=== PATIENT | female | born 1960 | race Caucasian/White ===

== ENCOUNTER → 2021-01-08 10:39 | Outpatient (BNVA) | payer MEDICARE, MEDICAID, SELFPAY | PROVIDERS: PCP Nurse Practitioner Adult Health; Visit Provider Internal Medicine | DX: I25.10 Atherosclerotic heart disease of native coronary artery without angina pectoris (principal); R07.2 Precordial pain; I35.1 Nonrheumatic aortic (valve) insufficiency | CPT/HCPCS: 93005; 99212 ==

== ENCOUNTER → 2021-01-09 13:51 | Outpatient (REF) | payer MEDICARE, MEDICAID, SELFPAY ==
--- NOTE | 2021-01-09 14:01 | CA_ITS ---
Transthoracic Echocardiogram Patient (Last, First, Middle): Norma Lopez, Gender: Female Date of : 1960 Age: 60 Procedure Date: 01/09/2021 Procedure Type: Transthoracic Echocardiogram Location: OP Height: 154.94 cm Weight: 68.04 kg BSA: 1.67 m2 Heart Rate: bpm BP: 140 / 68 mmHg Coremaker Supervisor: VICKIE Referring MD: Markie Virgen MD Manager Testing: Jim Oconnor MD Symptoms: I25.10 - Atherosclerotic heart disease of [place] coronary... Study Quality: Fair ECG Rhythm: Sinus Conclusions: - 1. Mildly reduced LV systolic function with LVEF of 45-50% with impaired relaxation filling pattern 2. Mild aortic regurgitation 3. normal RV systolic pressure 4. No pericardial effusion Findings Left Ventricle Normal left ventricular cavity size. There is normal left ventricular wall thickness. The left ventricular systolic function is mildly decreased. The visually estimated ejection fraction is between 45-50%. Spectral Doppler is indicative of an impaired relaxation filling pattern. E/E prime ratio is between 8 and 15 consistent with indeterminate filling pressures. Wall Motion Rest Echo Findings The mid inferior segment is hypokinetic. The basal inferior and basal inferoseptal segments are akinetic. All other scored wall segments showed normal motion. Right Ventricle Normal right ventricular cavity size and systolic function. Atria The left atrium is normal in size. There is lipomatous hypertrophy of the interatrial septum. There is a mobile atrial septum noted. Interatrial shunt cannot be excluded. The right atrium is normal in size. Aortic Valve There is mild calcification of the aortic valve. There is no aortic valve stenosis. There is mild aortic valve regurgitation. Mitral Valve Likely normal mitral valve structure and function. There is trace mitral valve regurgitation. There is no mitral valve stenosis. Pulmonic Valve The pulmonic valve was not well visualized. Tricuspid Valve Likely normal tricuspid valve structure and function. There is mild tricuspid valve regurgitation. The right ventricular systolic pressure is normal. The right ventricular systolic pressure is 29 mmHg. Normal right atrial pressure. There is no evidence of pulmonary hypertension. Great Vessels All visible segments of the aorta are normal in size. The pulmonary artery was not well visualized. Venous The inferior vena cava is normal in size and collapses greater than 50% with inspiration. Pericardium/Pleural There is no evidence of pericardial effusion. Prior Study Comparison Changes noted compared to prior study dated: 05/15/2020. LV systolic function is mildly depressed Measurements 2D Linear Measurements IVSd: 1.11 0.6-0.9/0.6-1.0 cm LVIDd: 4.76 3.9-5.3/4.2-5.9 cm LVIDd Index: 2.85 2.4-3.2/2.2-3.1 cm/m2 LVIDs: 2.93 2.0-3.6 cm LVPWd: 1.00 0.7-1.1 cm LA Diam: 2.90 2.7-3.8/3.0-4.0 cm LAIDs Index: 1.74 1.5-2.3 cm/m2 LV Mass: 225.05 67-162/88-224 g LV Mass Index: 134.76 43-95/49-115 g/m2 LVOT Diam: 2.00 3.0+(-)1.3 cm 2D Systolic Function EF 4C: 56.00 >55% EF 2C: 37.40 >55% Mitral Valve MV Pk E: 0.51 MV PK A: 0.83 MV Decel Time: 270.00 E/A: 0.60 E'Lateral: 9.03 E'Medial: 5.98 E/E' Med: 8.60 E/E' Lat: 5.70 PHT: 79.00 MVA PHT: 2.78 Decel Dare: 1.90 Aortic Valve AoV Pk Gar[place]: 1.37 AoV Pk Grad: 8.00 LVOT LVOT Pk [place]: 1.00 LVOT Mn [place]: 0.58 LVOT VTI: 0.18 LVOT Pk Grad: 4.00 LVOT Mn Grad: 2.00 LVOT Diam: 2.00 LVOT Area: 3.14 Diastolic Function MV Pk E: 0.51 MV Pk A: 0.83 E/A: 0.60 E'Medial: 5.98 E/E' Med: 8.60 E' Laterial: 9.03 E/E' Lat: 5.70 Tricuspid Valve TR Pk [place]: 2.00 TR Pk Grad: 16.00 RA Press: 3.00 RVSP: 29.00 Great Vessels Aorta Ao Asc: 3.20 2.1-3.4 cm Updated in Other Vendor System with Status of Final Jim Oconnor MD electronically signed on 01/10/2021 4:08:24 PM with status of Final
== END ==
LOC: HO.CARD 13:51
PROVIDERS: PCP Nurse Practitioner Adult Health; Visit Provider Internal Medicine
DX: I25.10 Atherosclerotic heart disease of native coronary artery without angina pectoris (principal)
CPT/HCPCS: 93306

== ENCOUNTER → 2021-01-15 09:54 | Outpatient (REF) | payer MEDICARE, MEDICAID, SELFPAY ==
--- NOTE | ~2021-01-15 | NM_ITS ---
Myocardial perfusion study Indication: Angina pectoris to evaluate for myocardial ischemia Technique: The patient was brought in for a Lexiscan perfusion study on 01/15/2021. Patient performed low-level exercise and was injected 0.4 mg of Lexiscan intravenously. Within a minute of injection, 25 mCi of sestamibi was given intravenously. Images were obtained using the SPECT gamma camera interlaced with the gating device. Images were obtained in supine position. Resting perfusion study was performed on 01/16/2021. Patient was administered 25 mCi of sestamibi intravenously at rest. Images were then obtained in supine position. Images obtained with and without CT attenuation. Total DLP 92 mGy-cm. Images were processed with the software and compared side to side in short axis, horizontal long axis and vertical long axis views. Findings: The stress perfusion study showed non attenuated images show minimally reduced uptake in the distal septum of the LV myocardium otherwise normal myocardial perfusion. Attenuation corrected images show mildly reduced uptake in the distal anterior and septum of the LV myocardium.. The gated study shows normal LV systolic function with calculated LVEF of 59%. LV cavity is normal in size. The gated study shows normal systolic wall thickening and contraction of segments. Resting study shows non attenuated images show mildly reduced uptake in the distal septum and apex of the LV myocardium.. Gating at rest reveals normal systolic wall motion with ejection fraction at 58%. The findings are consistent with normal myocardial perfusion. NM/NM padmini perf SPECT rest & str Impression: 1. Myocardial perfusion imaging study shows normal myocardial perfusion 2. Gated LVEF is 59% 3. Transient ischemic dilatation not present EKG is nondiagnostic for ischemia
--- NOTE | 2021-01-15 09:57 | CA_ITS ---
Acquisition Time: 2021-01-15 10:19:59 Total Exercise Time: 00:02:00 Test Indications: Chest Pain Medications: AMLODIPINE ATORVASTATIN PLAVIX FUROSEMIDE METOPROLOL SINGULAIR GABAPENTIN Protocol: LEXISCAN Max HR: 099 BPM 61% of Pred: 162 BPM Max BP: 122/066 mmHG Max Work Load: 1.0 METS Pharmacological stress test using Lexiscan while sitting and lkicking her feet. Pt denies any anginal sx. C/o back pain and leg cramps, sx reversed with Aminophyline 75 mg IV. EKG with occ. PAC's, non-diagnostic for ischemia. Nuclear images to follow. Normotensive response to test. Test reviewed with Dr. Oconnor. Referred By: Markie Virgen Overread By: Leonie Feng NP
== END ==
LOC: HO.CARD 09:54
PROVIDERS: PCP Nurse Practitioner Adult Health; Visit Provider Internal Medicine
DX: I20.9 Angina pectoris, unspecified (principal)
CPT/HCPCS: 78452; 93016; 93017; 93018; A9500; J0280; J2785

== ENCOUNTER → 2021-01-24 11:04 | Outpatient (BNVA) | payer MEDICARE, MEDICAID, SELFPAY | PROVIDERS: PCP Nurse Practitioner Adult Health; Visit Provider Internal Medicine | DX: I25.10 Atherosclerotic heart disease of native coronary artery without angina pectoris (principal); I35.1 Nonrheumatic aortic (valve) insufficiency; I10 Essential (primary) hypertension; R12 Heartburn; Z95.1 Presence of aortocoronary bypass graft | CPT/HCPCS: 99212 ==

== ENCOUNTER → 2021-07-25 13:36 | Outpatient (BNVA) | payer MEDICARE, MEDICAID, SELFPAY | PROVIDERS: Visit Provider Internal Medicine | DX: I25.10 Atherosclerotic heart disease of native coronary artery without angina pectoris (principal); I35.1 Nonrheumatic aortic (valve) insufficiency; I10 Essential (primary) hypertension; R12 Heartburn; Z95.1 Presence of aortocoronary bypass graft | CPT/HCPCS: 99212 ==

== ENCOUNTER 2021-08-21 14:58 | Outpatient (REF) | payer MEDICARE, MEDICAID, SELFPAY ==
[2021-08-21 16:13] LABS: MANUAL DIFF FLAG NO
[2021-08-21 16:18] LABS: Basophils Absolute Auto 0.1 X10*3/uL (0.0-0.2); Basophils Percent Auto 1.3 % (0-2); Eosinophils Absolute Auto 0.1 X10*3/uL (0.0-0.4); Eosinophils Percent Auto 1.5 % (0-4); Hematocrit 40.4 % (37.0-47.0); Hemoglobin 14.1 g/dl (12.0-16.0); Imm Gran Abs Auto 0.01 X10*3/uL (0.00-0.03); Imm Gran Pct Auto 0.2 % (0.0-0.4); Lymphocytes Absolute Auto 2.1 X10*3/uL (1.2-4.9); Lymphocytes Percent Auto 38.8 % (20-40); Mean Corpuscular HGB Conc 34.9 g/dl (31.0-35.0); Mean Corpuscular Hemoglobin 32.1 pg (27.0-33.0); Mean Platelet Volume 9.9 fL (9.4-12.3); Monocytes Absolute Auto 0.4 X10*3/uL (0.1-1.2); Monocytes Percent Auto 7.3 % (2-11); Neutrophils Absolute Auto 2.7 x10*3/uL (2.0-8.3); Neutrophils Percent Auto 50.9 % (45-73); Platelet Count 258 X10*3/uL (160-400); Red Blood Count 4.39 X10*6/uL (4.20-5.50); Red Cell Distribution Width 12.3 % (11.0-16.0); White Blood Count 5.4 X10*3/uL (4.8-10.8)
[2021-08-21 16:40] LABS: Alanine Aminotransferase 68 U/L (0-31); Albumin Level 4.6 g/dL (3.5-5.0); Alkaline Phosphatase 82 U/L (39-117); Anion Gap 11 (12-20); Aspartate Amino Transferase 25 U/L (5-31); Bilirubin Total 1.5 mg/dL (0.0-1.0); Blood Urea Nitrogen 16 mg/dL (9-16); Calcium 9.9 mg/dL (8.4-10.2); Carbon Dioxide 31 mmol/L (22-29); Chloride 106 mmol/L (96-108); Estimated Glomerular Filt Rate > 60; Glucose Random 100 mg/dL (60-115); Potassium 3.2 mmol/L (3.3-5.1); Sodium 145 mmol/L (135-145); Total Protein 7.4 g/dL (6.5-8.0)
[2021-08-21 17:01] LABS: TSH reflex Free T4 2.26 uIU/mL (0.32-4.0)
== END 2021-08-21 14:59 | disposition home or self-care (01) ==
LOC: HO.LAB 14:58
PROVIDERS: PCP Nurse Practitioner Adult Health; Visit Provider Nurse Practitioner
DX: K21.9 Gastro-esophageal reflux disease without esophagitis (principal); R10.13 Epigastric pain; K22.70 Barrett's esophagus without dysplasia; I10 Essential (primary) hypertension; E78.00 Pure hypercholesterolemia, unspecified; E03.9 Hypothyroidism, unspecified; I25.10 Atherosclerotic heart disease of native coronary artery without angina pectoris; I35.1 Nonrheumatic aortic (valve) insufficiency; Z55.0 Illiteracy and low-level literacy; Z95.1 Presence of aortocoronary bypass graft; Z90.49 Acquired absence of other specified parts of digestive tract; Z88.6 Allergy status to analgesic agent
CPT/HCPCS: 36415; 80053; 84443; 85025; 99202

== ENCOUNTER → 2022-04-17 12:37 | Outpatient (BNVA) | payer MEDICARE, MEDICAID, SELFPAY | PROVIDERS: Visit Provider Internal Medicine | DX: I25.10 Atherosclerotic heart disease of native coronary artery without angina pectoris (principal); I35.1 Nonrheumatic aortic (valve) insufficiency; I10 Essential (primary) hypertension; Z95.1 Presence of aortocoronary bypass graft | CPT/HCPCS: 93005; 99212 ==

== ENCOUNTER → 2022-05-28 14:23 | Outpatient (BNVA) | payer MEDICARE, MEDICAID, SELFPAY | PROVIDERS: PCP Nurse Practitioner Adult Health; Visit Provider Nurse Practitioner | DX: K21.9 Gastro-esophageal reflux disease without esophagitis (principal); K22.70 Barrett's esophagus without dysplasia; R19.7 Diarrhea, unspecified; Z55.0 Illiteracy and low-level literacy | CPT/HCPCS: 99212 ==

== ENCOUNTER 2022-07-09 15:10 | Outpatient (REF) | payer MEDICARE, MEDICAID, SELFPAY ==
[2022-07-09 15:55] LABS: Appearance Urine Clear; Color Urine Yellow; Glucose Urine UA Negative (Negative); Leukocyte Esterase Urine Negative (Negative); Nitrite Urine Negative (Negative); Specific Gravity - Urine <= 1.005 (1.005-1.025); Urine Blood Negative (Negative); Urine Ketones Negative (Negative); Urine Protein Negative (Neg-Trace)
[2022-07-09 16:32] LABS: TSH reflex Free T4 1.49 uIU/mL (0.32-4.0)
== END 2022-07-09 15:11 | disposition home or self-care (01) ==
LOC: HO.LAB 15:10
PROVIDERS: Visit Provider Nurse Practitioner
DX: K21.9 Gastro-esophageal reflux disease without esophagitis (principal); K22.70 Barrett's esophagus without dysplasia; R19.7 Diarrhea, unspecified; R30.0 Dysuria; R53.83 Other fatigue
CPT/HCPCS: 36415; 81003; 84443; 99212

== ENCOUNTER 2022-08-21 07:09 | Day surgery (SDC) | payer MEDICARE, MEDICAID, SELFPAY ==
[2022-08-15 11:17] VITALS: BMI 30.7
[2022-08-21 07:32] VITALS: BP 116/40; PULSE 79; RESP 16; TEMP 36.3; O2SAT 98; BMI 29.2
--- NOTE | 2022-08-21 07:49 | P.CONAN_ITS ---
[facility] Active Problems Active Problems: All Active Problems (Updated 08/15/22 @ 11:06 by Monika Tamayo RN) Precordial chest pain (Acute) Status post coronary artery bypass graft (Acute) GERD (gastroesophageal reflux disease) (Acute) Epigastric pain (Acute) Illiterate (Acute) Bowden's esophagus (Acute) Diarrhea (Acute) Dysuria (Acute) Fatigue (Acute) Essential hypertension (Acute) Carotid stenosis (Acute) Nonrheumatic aortic valve regurgitation (Acute) Heartburn (Acute) Atherosclerotic cardiovascular disease (Acute) Coronary arteriosclerosis (Acute) Past Medical History Medical History Atherosclerotic cardiovascular disease Carotid stenosis Coronary arteriosclerosis Essential hypertension GERD (gastroesophageal reflux disease) Illiterate Nonrheumatic aortic valve regurgitation Functional capacity: independent ambulation Patient : No Family History Family History Father Stroke Heart attack Mother Diabetes Family history of problems with anesthesia: No Surgical History Surgical History History of coronary artery bypass graft (~12/2018) Hx of cardiac catheterization History of Problems with Anesthesia: No Social History Social History Alcohol intake: never Patient Tobacco Use Status: Former Tobacco user Quit Date: 2016 Years Smoked: 40 +/- Use of substances other than those prescribed or required for medical reasons: No Advance Directives: No Advance Directives Information Provided: Yes Nutrition Risks: No Nutritional Risk Patient : No Meds Allergies Allergy/AdvReac Type Severity Reaction Status Date / Time butorphanol [From Stadol] Allergy Unknown unknown Verified 07/09/22 14:36 oxycodone Allergy Unknown Unknown Verified 07/09/22 14:36 Home Medications Medication Instructions Recorded Confirmed Last Taken Type atorvastatin 80 mg tablet 80 mg PO DAILY 07/24/20 08/15/22 Unknown History bupropion HCl 150 mg tablet,12 hr 150 mg PO BID 07/24/20 08/15/22 Unknown History sustained-release gabapentin 300 mg capsule 300 mg PO TID 07/24/20 08/15/22 Unknown History hydrocodone 10 mg-acetaminophen 1 tab PO Q4H PRN pain 11/10/20 12/02/22 Unknown History 325 mg tablet lamotrigine 25 mg tablet 25 mg PO DAILY 07/24/20 08/15/22 Unknown History montelukast 10 mg tablet 10 mg PO DAILY 07/24/20 08/15/22 Unknown History solifenacin 10 mg tablet 10 mg PO DAILY 07/24/20 08/15/22 Unknown History clopidogrel 75 mg tablet 75 mg PO DAILY 01/08/21 08/15/22 Unknown History furosemide 40 mg tablet 40 mg PO BID 01/08/21 08/15/22 Unknown History ferrous sulfate 325 mg (65 mg 325 mg PO BID 01/24/21 08/15/22 Unknown History iron) tablet Exam Exam Date and Time: August 21, 2022 0749 Height,Weight and Vital Signs: Height 5 ft Weight 68.039 kg Last Vital Signs Temp 97.4 F 08/21/22 07:32 Pulse 79 08/21/22 07:32 Resp 16 08/21/22 07:32 BP 116/40 L 08/21/22 07:32 Pulse Ox 98 08/21/22 07:32 O2 Del Method 08/21/22 07:32 Airway Mallampati Class: II TM Dist: >3cm Neck ROM: Full Heart: RRR Lungs: CTA Assessment and Plan Final Anesthetic Review Family History of Problems with Anesthesia: No History of Problems with Anesthesia: No ASA Class: II Final Preanesthetic Review: No Changes in Pt Med Stat, Meds/Allgs Chart Reviewed, Consent Obtained/Reviewed and Anes Risks/Benef Reviewed Patient Risk: Low Procedure Risk: Low Anesthetic Plan Anesthetic Plan: MAC: Disposition: Standard PACU
--- NOTE | 2022-08-21 08:16 | MHC.SHP ---
Pre-Procedural Eval Section A Date of Service: 08/21/22 Section B Chief Complaint: reflux disease Details of Present Illness: 62 y.o F with hx of CAD s/p CABG, aortic insufficiency, carotid artery stenosis, reported hx of BE for which she is here for EGD. Only CC today is heartburn Relevant Family History (Specify if Yes): No Relevant Social History: Tobacco Use (Former ) Present Medications: see Short Stay Collaborative assessment Medical History: Significant History (As above ) History of Previous Operations: Relevant previous surgery/procedure and date(s) (CABG ) Allergies: Allergies Allergy/AdvReac Type Severity Reaction Status Date / Time butorphanol [From Stadol] Allergy Unknown unknown Verified 07/09/22 14:36 oxycodone Allergy Unknown Unknown Verified 07/09/22 14:36 Review of Systems Review of Systems Comment: 10 point ROS negative Exam Exam Comment: Gen appear: No acute distress, well nourished HEENT: no icterus Chest: No overt resp distress Abd: soft, nontender, nondistended Psych: Stable affect, answering questions appropriately Neuro: A/Ox3 noted to move all extremities spontaneously Ext: no peripheral edema Plan Diagnosis/Plan: Unchanged I have reviewed the history and physical and performed a pertinent physical examination on my patient. No changes have occurred unless specified.
--- NOTE | 2022-08-21 08:19 | P.OP_ITS ---
Operative Note Operative Note Date of Service: 08/21/22 Narrative: Procedure: Esophagogastroduodenoscopy Endoscopist: Paulette Alvarado MD Indication: Hx of Bowden's esophagus Anesthesia Provider: Dr Torri Velez Anesthesia Type: MAC ?? EGD Procedure:?? The procedure, indications, preparation and potential complications were reviewed with the patient, who indicated understanding and gave written informed consent to proceed. A physical exam was performed. The endoscope was introduced through the mouth, and advanced to the second part of duodenum. The mucosa was carefully examined on slow withdrawal of the endoscope. The patient tolerated the procedure well. There were no immediate complications.? ? EGD Findings:? * Esophagus:? Normal mucosa noted in the entire esophagus. The Z line was at 35. [place] colored irregular mucosa was noted to extend up to barely 34 cm. 4 quadrant cold forceps biopsies were obtained. A short hiatal hernia was noted with the diaphragmatic pinch at 37 cm to assess for metaplastic changes (Bowden's esophagus). * Stomach:? Solid and semi solid food was noted in fundus and body of the stomach. The stomach fundus was completely obscured and could not be visualised despite attempting to displace the food. Random cold forceps biopsies were obtained to rule out H Pylori. * Duodenum:? Normal mucosa was noted in the whole of the examined duodenum. The duodenal bulb and sweep also had retained food. ? EGD Impressions:? * Irregular Z line of 1 cm (biopsy) * Hiatal hernia * Normal gastric mucosa to the extent visualised (biopsy) * Suspected delayed gastric emptying/dysmotility. * Normal duodenum ?? Recommendations:?? * Follow biopsy results. Our office will call or send a letter with results within 7-10 days. * Consider decreasing opiates to enhance gastric emptying * If H pylori +, patient will be prescribed eradication therapy followed by test of cure. * Avoid NSAIDs. Above has been reviewed with the patient. Relevant educational hand outs were provided at discharge.
[2022-08-21 08:37] VITALS: BP 100/45; PULSE 69; RESP 16; TEMP 36.1; O2SAT 96
[2022-08-21 08:52] VITALS: BP 104/56; PULSE 73; RESP 18; TEMP 36.5; O2SAT 96
--- NOTE | 2022-08-21 10:25 | HO.POSTANES ---
Post Anesthesia Evaluation Post Anesthesia Evaluation Vital Signs: Vital Signs Temp Pulse Resp BP Pulse Ox O2 Del Method 08/21/22 08:52 97.7 F 73 18 104/56 L 96 Room Air 08/21/22 08:37 97.0 F 69 16 100/45 L 96 Room Air 08/21/22 07:32 97.4 F 79 16 116/40 L 98 Room Air Anesthesia: Monitored Mental Status: Awake Pain Control: Satisfactory Nausea/Vomiting: None Hydration: Adequate Anesthesia-Related Issues: No Anes. Related Issues
== END 2022-08-21 09:29 | disposition home or self-care (01) ==
PROVIDERS: PCP Nurse Practitioner Adult Health; Visit Provider Internal Medicine
PROC: 0DJ08ZZ Inspection of Upper Intestinal Tract, Via Natural or Artificial Opening Endoscopic (ICD-10-PCS; CPT 43235; principal; 2022-08-21 08:20)
DX: K21.9 Gastro-esophageal reflux disease without esophagitis (principal); K30 Functional dyspepsia; K44.9 Diaphragmatic hernia without obstruction or gangrene; K22.70 Barrett's esophagus without dysplasia; K22.89 Other specified disease of esophagus; I10 Essential (primary) hypertension; I25.10 Atherosclerotic heart disease of native coronary artery without angina pectoris; Z95.1 Presence of aortocoronary bypass graft; I35.1 Nonrheumatic aortic (valve) insufficiency; Z55.0 Illiteracy and low-level literacy; Z79.899 Other long term (current) drug therapy; Z88.8 Allergy status to other drugs, medicaments and biological substances; Z87.891 Personal history of nicotine dependence
CPT/HCPCS: 43239; 88305; 88342

== ENCOUNTER → 2022-09-04 15:02 | Outpatient (BNVA) | payer MEDICARE, MEDICAID, SELFPAY | PROVIDERS: PCP Nurse Practitioner Adult Health; Visit Provider Nurse Practitioner | DX: K30 Functional dyspepsia (principal); K22.70 Barrett's esophagus without dysplasia; K21.9 Gastro-esophageal reflux disease without esophagitis; Z55.0 Illiteracy and low-level literacy | CPT/HCPCS: 99212 ==

== ENCOUNTER → 2022-10-23 12:54 | Outpatient (BNVA) | payer MEDICARE, MEDICAID, SELFPAY | PROVIDERS: PCP Nurse Practitioner Adult Health; Referring Provider Nurse Practitioner Adult Health; Visit Provider Internal Medicine | DX: I25.10 Atherosclerotic heart disease of native coronary artery without angina pectoris (principal); I35.1 Nonrheumatic aortic (valve) insufficiency; I10 Essential (primary) hypertension; Z12.11 Encounter for screening for malignant neoplasm of colon; K30 Functional dyspepsia; K21.9 Gastro-esophageal reflux disease without esophagitis; K22.70 Barrett's esophagus without dysplasia; Z55.0 Illiteracy and low-level literacy; Z95.1 Presence of aortocoronary bypass graft | CPT/HCPCS: 93005; 99212 ==

== ENCOUNTER 2023-04-23 12:53 | Outpatient (AMB) | payer MEDICARE, MEDICAID, SELFPAY ==
[2023-04-23 12:56] VITALS: BP 120/64; PULSE 70; BMI 30.6
--- NOTE | 2023-04-23 12:56 | MHC.OFFVIS ---
Intake Vital Signs 04/23/23 12:56 Height 5 ft Weight 156 lb 8.451 oz BMI 30.6 BP 120/64 Blood Pressure Location Lt brachial Position Sitting Pulse 70 Intake Visit Reasons: 6 mth f/up Intake Note: 6 month follow Environmental Lead Required: No Allergies butorphanol [From Stadol] Allergy (Unknown, Verified 04/23/23 13:12) unknown oxycodone Allergy (Unknown, Verified 04/23/23 13:12) Unknown Medication List - Last Reconciled 04/23/23 by Markie Virgen MD amlodipine 10 mg PO DAILY atorvastatin 80 mg PO DAILY blood pressure monitor (Blood Pressure Kit) As directed clopidogrel 75 mg PO DAILY dexlansoprazole 60 mg PO DAILY 90 days famotidine (Pepcid) 40 mg PO DAILY 90 days ferrous sulfate 325 mg PO BID furosemide 40 mg PO BID gabapentin 300 mg PO TID hydrocodone-acetaminophen 10-325 mg 1 tab PO Q4H PRN ketoconazole 2% topical ONCE lamotrigine 25 mg PO BID metoclopramide HCl (Reglan) 10 mg PO .bid qam and qacsuppe 90 days metoprolol succinate ER 50 mg PO DAILY montelukast 10 mg PO DAILY solifenacin 10 mg PO DAILY HPI HPI Comments History of Present Illness Details Norma returns for follow-up regarding coronary artery disease. To recall, she had PCI of LAD in 2014. In 2019, she had cardiac catheterization for recurrent anginal symptoms and that showed left main stenosis. This led to coronary artery bypass surgery. Overall, doing good. No specific complaints. No angina. [facility] Medical History Atherosclerotic cardiovascular disease Carotid stenosis Coronary arteriosclerosis Essential hypertension GERD (gastroesophageal reflux disease) Illiterate Nonrheumatic aortic valve regurgitation Surgical History History of coronary artery bypass graft (~12/2018) Hx of cardiac catheterization Family History Father Stroke Heart attack Mother Diabetes Social History Alcohol intake: never Patient Tobacco Use Status: Former Tobacco user Quit Date: 2016 Years Smoked: 40 +/- Review of Systems Const Denies weakness ENT Denies dizziness Card Denies chest pain, Denies chest pain with activity, Denies syncope, Denies rapid heart rate, Denies pedal edema, Denies edema, Denies leg edema, Denies lightheadedness, Denies palpitations, Denies dyspnea, Denies dyspnea on exertion and Denies orthopnea Resp Denies cough, Denies dyspnea and Denies dyspnea on exertion GI Denies hematochezia and Denies change in stool character Musc Denies abnormal gait, Denies muscle cramps, Denies muscle weakness, Denies numbness, Denies radiating pain into limb and Denies tingling Neuro Denies abnormal gait, Denies dizziness, Denies syncope, Denies numbness, Denies tingling and Denies weakness Endo Denies palpitations Physical Exam Vital Signs: Last Vital Signs Pulse 70 04/23/23 12:56 BP 120/64 04/23/23 12:56 BMI result Body Mass Index 30.6 Const General: comfortable and no acute distress Orientation/consciousness: patient oriented x3 HEENT Other: Unremarkable Head: Yes normal to inspection Neck Neck: Yes normal visual inspection Chest Chest palpation & inspection: normal inspection of the chest Resp Auscultation: clear to auscultation bilaterally Cardio Palpation: normal PMI Heart sounds: S1 normal heart sound present, S2 normal heart sound present, no gallops, no murmurs and no rubs GI Palpation (GI): Soft to palpation Back/Spine/Pelvis Other: unremarkable Skin General skin exam: no rashes or lesions noted Neuro General: patient oriented x3 Extrem General: Yes normal to inspection Psych Mental Status: mental status grossly normal Assessment & Plan Assessment & Plan (1) Atherosclerotic cardiovascular disease: Code(s): I25.10 - Atherosclerotic heart disease of [place] coronary artery without angina pectoris Plan: Status post coronary artery bypass surgery from 2019. Myocardial perfusion imaging study from 2020 with normal perfusion. Gated LVEF 59%. Echocardiogram in 2020-LVEF 45-50% with inferior wall motion abnormality. Mild aortic regurgitation. Overall doing well. On Plavix as opposed to aspirin due to GI issues. Continue beta-blockers and statins. Last LDL cholesterol from [facility]-70 mg/dL. Triglycerides 69 mg/dL. (2) Status post coronary artery bypass graft: Code(s): Z95.1 - Presence of aortocoronary bypass graft Plan: Recovered completely. Per vascular note, there was no significant carotid disease. (3) Nonrheumatic aortic valve regurgitation: Code(s): I35.1 - Nonrheumatic aortic (valve) insufficiency Plan: [id number] at different times. In the echocardiogram from 2020, reported mild. (4) Essential hypertension: Code(s): I10 - Essential (primary) hypertension Plan: Stable. No changes. Plan Follow-up 6 months. Coding Level of Care Code Est Pt Level 4 (85263) Diagnoses Atherosclerotic cardiovascular disease I25.10 Status post coronary artery bypass graft Z95.1 Nonrheumatic aortic valve regurgitation I35.1 Essential hypertension I10
== END 2023-04-23 13:08 | disposition home or self-care (01) ==
PROVIDERS: PCP Nurse Practitioner Adult Health; Referring Provider Nurse Practitioner Adult Health; Visit Provider Internal Medicine
DX: I25.10 Atherosclerotic heart disease of native coronary artery without angina pectoris (principal); Z95.1 Presence of aortocoronary bypass graft; I35.1 Nonrheumatic aortic (valve) insufficiency; I10 Essential (primary) hypertension
CPT/HCPCS: 99214

== ENCOUNTER 2023-04-23 12:53 | Outpatient (AMB) | payer MEDICARE, MEDICAID, SELFPAY ==
--- NOTE | 2023-04-23 13:09 | MHC.OFFVIS ---
Intake Vital Signs 04/23/23 13:19 Height 5 ft Weight 155 lb BMI 30.3 BP 139/84 Blood Pressure Location Rt brachial Position Sitting Pulse 76 Intake Visit Reasons: 6 month follow up Intake Note: Norma presents to in office visit in 6 months follow up of GERD. PT CC: Patient reports she stills weaking up with burning sensation from he throat. Denies any other GI symptoms. Network Support Technician Required: No Accompanied by: Self / Same As Patient Allergies butorphanol [From Stadol] Allergy (Unknown, Verified 04/23/23 13:12) unknown oxycodone Allergy (Unknown, Verified 04/23/23 13:12) Unknown HPI 6 month follow up HPI Details Assessment & Plan (1) Delayed gastric emptying: ?Comment: Retained food in stomach on 2021 EGD ?Code(s): K30 - Functional dyspepsia ?Plan: 2021 had a negative Cologuard will repeat this in 3 years. She is doing well on her reglan 10mg w/o s/e, except that she is gaining weight! She is not having any s/e. She is requesting a 90 day refill as she is going away, I will provide this. 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 Return office visit in 6 months as she is satisfied with her current GI regimen. (2) GERD (gastroesophageal reflux disease): ?Code(s): K21.9 - Gastro-esophageal reflux disease without esophagitis (3) Illiterate: ?Code(s): Z55.0 - Illiteracy and low-level literacy (4) Bowden's esophagus: ?Comment: Past history treated by Dr. Correia and no records available ?Code(s): K22.70 - Bowden's esophagus without dysplasia (5) Colon cancer screening: ?Comment: 09/2021 negative Cologuard repeat 3 years AEB ?Code(s): Z12.11 - Encounter for screening for malignant neoplasm of colon ? ? ? Medications: Changed From dexlansoprazole 60 mg? PO DAILY 30 caps 6RF K21.9 - Gastro-eso phageal reflux dis ease without esoph agitis, K22.70 - B arrett's esophagus without dysplasia ? To dexlansoprazole 60 mg PO DAILY 90 caps 1RF 90 days K21.9 - Gastro-eso phageal reflux dis ease without esoph agitis, K22.70 - B arrett's esophagus without dysplasia ? From metoclopramide HCl 10 mg? PO .bid qam and qacsuppe 60 t abs 3RF K30 - Functional d yspepsia ? To metoclopramide HCl (Reglan) 10 mg PO .bid qam and qacsuppe 180 t abs 1RF 90 days K30 - Functional d yspepsia ? From famotidine 40 mg? PO DAILY 30 tabs 6RF K21.9 - Gastro-eso phageal reflux dis ease without esoph agitis ? To famotidine (Pepcid ) 40 mg PO DAILY 90 tabs 1RF 90 days K21.9 - Gastro-eso phageal reflux dis ease without esoph agitis TODAY'S VISIT She continues on Dexilant 60 mg once a day, famotidine 40 mg at bedtime, Reglan 10 mg twice a day. She is still having residual sx in her upper esophagus and is asking to have her Dexilant increased, but this is max dose and her insurance will not cover this. I suggest that we increase the famotidine to bid and she can take a dose of this in the am as well as in the pm. She is agreeable to this. She continues on her Reglan 10 mg twice a day. She has had no adverse effects from this. She is on very limited group home income. ROV 6 mos. PFSH Medical History Atherosclerotic cardiovascular disease Carotid stenosis Coronary arteriosclerosis Essential hypertension GERD (gastroesophageal reflux disease) Illiterate Nonrheumatic aortic valve regurgitation Surgical History History of coronary artery bypass graft (~12/2018) Hx of cardiac catheterization Family History Father Stroke Heart attack Mother Diabetes Social History Alcohol intake: never Patient Tobacco Use Status: Former Tobacco user Quit Date: 2016 Years Smoked: 40 +/- Review of Systems Const Denies fatigue, Denies fever(s), Denies night sweats, Denies poor appetite and Denies weight loss Eyes Details: glasses Reports requires corrective lenses ENT Reports Normal hearing present, Denies dental pain, Denies dysphagia, Denies hearing loss, Denies mouth pain, Denies odynophagia, Denies throat swelling, Denies tongue swelling and Reports other (Dentition adequate) Card Reports no additional complaints Resp Reports no additional complaints GI Denies abdominal pain, Denies melena, Reports bloating, Denies hematochezia, Denies constipation, Denies GI cramping, Denies dysphagia, Denies excessive flatus, Reports early satiety, Reports heartburn, Denies diarrhea, Denies nausea, Denies odynophagia, Denies vomiting and Denies hematemesis Skin/Breast Denies pruritus, Denies lesions, Denies rash and Denies jaundice Neuro Reports Normal hearing present and Denies Abnormal speech present Endo Denies fatigue Aller/Immun Denies throat swelling and Denies tongue swelling Physical Exam Vital Signs: Last Vital Signs Pulse 76 04/23/23 13:19 BP 139/84 04/23/23 13:19 BMI result Body Mass Index 30.3 Const General: cooperative, no acute distress, well developed and well groomed Nutritional Appearance: well nourished and obese Orientation/consciousness: oriented to person, oriented to place and oriented to time Limitations: No language barrier HEENT Head: Yes normocephalic and Yes atraumatic Eyes General: appearance normal, both eyes and all related structures Pupils: Equal, round and reactive pupils present Neck Neck: Yes normal visual inspection and Yes no lymphadenopathy Thyroid: Thyroid normal Resp Effort & Inspection: normal respiratory effort and able to speak in complete sentences Auscultation: clear to auscultation bilaterally Cardio Rate: regular rate Rhythm: regular rhythm Heart sounds: Normal, physiologic split S2 sound present Peripheral pulses: radial pulses present and posterior tibial pulses present GI Inspection: No distended, No Abdominal panniculus present and Yes obesity Palpation (GI): Soft to palpation, nontender, no guarding, not rigid and No hepatosplenomegaly present Percussion: Yes normal to percussion Auscultation: normal bowel sounds Rectal Exam - Female: deferred Skin General skin exam: no rashes or lesions noted, turgor normal, skin not dry, no jaundice, No spider nevi and no striae Rashes: no rashes Nails: normal Neuro General: oriented to person, oriented to place and oriented to time Cranial nerves: Yes Equal, round and reactive pupils present and Yes Normal hearing present Speech: No Abnormal speech present Extrem General: Yes normal to inspection, No clubbing, No cyanosis and No edema Psych Appearance: grossly normal and well kempt Mental Status: mental status grossly normal Speech and movement: Normal speech and movement present Affect: normal affect Attitude: cooperative Thought process: Normal thought process present and not confabulating Thought content: Normal thought content present Insight: Limited insight present (Psych) Judgement: Limited judgement present (Psych) Assessment & Plan Assessment & Plan (1) GERD (gastroesophageal reflux disease): Code(s): K21.9 - Gastro-esophageal reflux disease without esophagitis Plan: She continues on Dexilant 60 mg once a day, famotidine 40 mg at bedtime, Reglan 10 mg twice a day. She is still having residual sx in her upper esophagus and is asking to have her Dexilant increased, but this is max dose and her insurance will not cover this. I suggest that we increase the famotidine to bid and she can take a dose of this in the am as well as in the pm. She is agreeable to this. She continues on her Reglan 10 mg twice a day. She has had no adverse effects from this. She is on very limited group home income. ROV 6 mos. (2) Delayed gastric emptying: Comment: Retained food in stomach on 2021 EGD Code(s): K30 - Functional dyspepsia (3) Illiterate: Code(s): Z55.0 - Illiteracy and low-level literacy Medications: Changed From famotidine 40 mg PO DAILY 90 days 90 tabs 1RF K21.9 - Gastro-esophageal reflux disease without esophagitis To famotidine (Pepcid) 40 mg PO BID 180 tabs 1RF 90 days K21.9 - Gastro-esophageal reflux disease without esophagitis Refilled dexlansoprazole 60 mg PO DAILY 90 caps 1RF 90 days K21.9 - Gastro-esophageal reflux disease without esophagitis, K22.70 - Bowden's esophagus without dysplasia metoclopramide HCl (Reglan) 10 mg PO .bid qam and qacsuppe 180 tabs 1RF 90 days K30 - Functional dyspepsia Coding Level of Care Code Est Pt Level 3 (99291) Diagnoses GERD (gastroesophageal reflux disease) K21.9 Delayed gastric emptying K30 Illiterate Z55.0
[2023-04-23 13:19] VITALS: BP 139/84; PULSE 76; BMI 30.3
== END 2023-04-23 13:51 | disposition home or self-care (01) ==
PROVIDERS: PCP Nurse Practitioner Adult Health; Visit Provider Nurse Practitioner
DX: K21.9 Gastro-esophageal reflux disease without esophagitis (principal); K30 Functional dyspepsia; Z55.0 Illiteracy and low-level literacy
CPT/HCPCS: 99213

== ENCOUNTER → 2023-04-23 12:53 | Outpatient (BNVA) | payer MEDICARE, MEDICAID, SELFPAY | PROVIDERS: PCP Nurse Practitioner Adult Health; Visit Provider Nurse Practitioner | DX: K21.9 Gastro-esophageal reflux disease without esophagitis (principal); K30 Functional dyspepsia; Z55.0 Illiteracy and low-level literacy; I25.10 Atherosclerotic heart disease of native coronary artery without angina pectoris; I35.1 Nonrheumatic aortic (valve) insufficiency; I10 Essential (primary) hypertension; Z79.02 Long term (current) use of antithrombotics/antiplatelets; Z79.899 Other long term (current) drug therapy; Z95.1 Presence of aortocoronary bypass graft | CPT/HCPCS: 99212 ==

== ENCOUNTER 2023-12-30 14:52 | Outpatient (AMB) | payer MEDICARE, MEDICAID, SELFPAY ==
[2023-12-30 15:05] VITALS: BP 130/70; PULSE 73; BMI 31.9
--- NOTE | 2023-12-30 15:05 | A.OFFVIS_ITS ---
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 Accompanied by: Self / Same As Patient Allergies butorphanol [From Stadol] Allergy (Unknown, Verified 04/23/23 13:12) unknown oxycodone Allergy (Unknown, Verified 04/23/23 13:12) Unknown Medication List - Last Reconciled 12/30/23 by Markie Virgen MD amlodipine 10 mg PO DAILY atorvastatin 80 mg PO DAILY blood pressure monitor (Blood Pressure Kit) As directed clopidogrel 75 mg PO DAILY dexlansoprazole 60 mg PO DAILY famotidine 40 mg PO BID ferrous sulfate 325 mg PO BID furosemide 40 mg PO BID gabapentin 300 mg PO TID hydrocodone-acetaminophen 10-325 mg 1 tab PO Q4H PRN ketoconazole 2% topical ONCE lamotrigine 25 mg PO BID metoclopramide HCl (Reglan) 10 mg PO .bid qam and qacsuppe 90 days metoprolol succinate ER 50 mg PO DAILY montelukast 10 mg PO DAILY solifenacin 10 mg PO DAILY HPI HPI Comments History of Present Illness Details Norma returns for follow-up regarding coronary artery disease. To recall, she had PCI of LAD in 2014. In 2019, she had cardiac catheterization for recurrent anginal symptoms and that showed left main stenosis. This led to coronary artery bypass surgery. Overall, she states she is actually doing pretty good. She does not have any complaints whatsoever like angina or shortness of breath or anything cardiac sounding. She states she is gained some weight recently. Otherwise, no issues. [facility] Medical History GERD (gastroesophageal reflux disease) Illiterate Essential hypertension Carotid stenosis Nonrheumatic aortic valve regurgitation Atherosclerotic cardiovascular disease Coronary arteriosclerosis Surgical History Hx of cardiac catheterization History of coronary artery bypass graft (~12/2018) Family History Father Stroke Heart attack Mother Diabetes Social History Alcohol intake: never Patient Tobacco Use Status: Former Tobacco user Quit Date: 2017 Years Smoked: 40 +/- Review of Systems Const Denies chills, Denies fatigue, Denies fever(s), Denies frequent falls, Denies weakness, Denies weight gain and Denies weight loss ENT Denies dizziness Card Denies chest pain, Denies leg edema, Denies lightheadedness, Denies palpitations, Denies dyspnea and Denies dyspnea on exertion Resp Denies cough, Denies dyspnea and Denies dyspnea on exertion GI Denies hematochezia Musc Denies abnormal gait, Denies muscle weakness, Denies numbness, Denies radiating pain into limb and Denies tingling Neuro Denies abnormal gait, Denies dizziness, Denies frequent falls, Denies numbness, Denies tingling and Denies weakness Endo Denies fatigue and Denies palpitations Physical Exam Vital Signs: Last Vital Signs Pulse 73 12/30/23 15:05 BP 130/70 12/30/23 15:05 BMI result Body Mass Index 31.9 Const General: comfortable and no acute distress Orientation/consciousness: patient oriented x3 HEENT Other: Unremarkable Head: Yes normal to inspection Neck Neck: Yes normal visual inspection Chest Chest palpation & inspection: normal inspection of the chest Resp Auscultation: clear to auscultation bilaterally Cardio Palpation: normal PMI Heart sounds: S1 normal heart sound present, S2 normal heart sound present, no gallops, no murmurs and no rubs GI Palpation (GI): Soft to palpation Back/Spine/Pelvis Other: unremarkable Skin General skin exam: no rashes or lesions noted Neuro General: patient oriented x3 Extrem General: Yes normal to inspection Psych Mental Status: mental status grossly normal Office Procedures EKG Details: EKG with sinus rhythm at 73/Min; can not exclude old inferior or anterior infarct and inferior/anterolateral downsloping STs. Overall, similar to prior. [id number], Complete Assessment & Plan Assessment & Plan (1) Atherosclerotic cardiovascular disease: Code(s): I25.10 - Atherosclerotic heart disease of [place] coronary artery without angina pectoris Plan: s/p CABG 2018. Myocardial perfusion imaging study from 2020 with normal perfusion. Gated LVEF 59%. Echocardiogram in 2020-LVEF 45-50% with inferior wall motion abnormality. Mild aortic regurgitation. Clinically, absolutely no angina. Continue Plavix as opposed to aspirin as she has some GI issues. Continue beta- blockers/statins. Last available LDL cholesterol from [facility]-70 mg/dL. Triglycerides 69 mg/dL. (2) Status post coronary artery bypass graft: Code(s): Z95.1 - Presence of aortocoronary bypass graft Plan: Recovered completely. Per vascular note, there was no significant carotid disease. (3) Nonrheumatic aortic valve regurgitation: Code(s): I35.1 - Nonrheumatic aortic (valve) insufficiency Plan: [id number] at different times. In the echocardiogram from 2020, reported mild. Recheck before next visit. (4) Essential hypertension: Code(s): I10 - Essential (primary) hypertension Plan: Stable. No changes. Orders: Orders CA echo transthoracic complete 6 Months I35.1 - Nonrheumatic aortic (valve) insufficiency Coding Level of Care Code Est Pt Level 4 (96536) Diagnoses Atherosclerotic cardiovascular disease I25.10 Status post coronary artery bypass graft Z95.1 Nonrheumatic aortic valve regurgitation I35.1 Essential hypertension I10 CPT Codes EKG - CPT: 81209-[id number], Complete ([id number])
== END 2023-12-30 16:19 | disposition home or self-care (01) ==
PROVIDERS: PCP Nurse Practitioner Adult Health; Visit Provider Internal Medicine
DX: I25.10 Atherosclerotic heart disease of native coronary artery without angina pectoris (principal); Z95.1 Presence of aortocoronary bypass graft; I35.1 Nonrheumatic aortic (valve) insufficiency; I10 Essential (primary) hypertension
CPT/HCPCS: 93010; 99214

== ENCOUNTER → 2023-12-30 14:52 | Outpatient (BNVA) | payer MEDICARE, MEDICAID, SELFPAY | PROVIDERS: PCP Nurse Practitioner Adult Health; Visit Provider Internal Medicine | DX: I35.1 Nonrheumatic aortic (valve) insufficiency (principal); I25.10 Atherosclerotic heart disease of native coronary artery without angina pectoris; I10 Essential (primary) hypertension; Z95.5 Presence of coronary angioplasty implant and graft; Z95.1 Presence of aortocoronary bypass graft; Z98.890 Other specified postprocedural states | CPT/HCPCS: 93005; 99212 ==

== ENCOUNTER 2024-01-14 12:39 | Outpatient (AMB) | payer MEDICARE, MEDICAID, SELFPAY ==
--- NOTE | 2024-01-14 13:02 | MHC.OFFVIS ---
Vital Signs 01/14/24 13:12 Height 5 ft Weight 163 lb BMI 31.8 BP 146/63 H Blood Pressure Location Lt brachial Position Sitting Pulse 70 Intake Visit Reasons: 6 Month Follow up Intake Note: Patient follow up for GERD. Patient cc: abdominal pain with bloating, and acid reflex with burning sensation. Denies any other GI issues. 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 She is still having residual sx in her upper esophagus and is asking to have her Dexilant increased, but this is max dose and her insurance will not cover this. I suggest that we increase the famotidine to bid and she can take a dose of this in the am as well as in the pm. She is agreeable to this. She continues on her Reglan 10 mg twice a day. She has had no adverse effects from this. She is on very limited correction income. ROV 6 mos. (2) Delayed gastric emptying: Comment: Retained food in stomach on 2021 EGD Code(s): K30 - Functional dyspepsia (3) Illiterate: Code(s): Z55.0 - Illiteracy and low-level literacy Medications: Changed From famotidine 40 mg PO DAILY 90 days 90 tabs 1RF K21.9 - Gastro-esophageal reflux disease without esophagitis To famotidine (Pepcid) 40 mg PO BID 180 tabs 1RF 90 days K21.9 - Gastro-esophageal reflux disease without esophagitis Refilled dexlansoprazole 60 mg PO DAILY 90 caps 1RF 90 days K21.9 - Gastro-esophageal reflux disease without esophagitis, K22.70 - Bowden's esophagus without dysplasia metoclopramide HCl (Reglan) 10 mg PO .bid qam and qacsuppe 180 tabs 1RF 90 days K30 - Functional dyspepsia TODAY'S VISIT She continues on Dexilant 60 mg once a day, famotidine 40 mg at twice a day, Reglan 10 mg twice a day. With this she feels that her GI symptoms are all well controlled and she is satisfied with her GI regimen. Return office visit in 6 months [facility] Medical History GERD (gastroesophageal reflux disease) Illiterate Essential hypertension Carotid stenosis Nonrheumatic aortic valve regurgitation Atherosclerotic cardiovascular disease Coronary arteriosclerosis Surgical History Hx of cardiac catheterization History of coronary artery bypass graft (~12/2018) Family History Father Stroke Heart attack Mother Diabetes Social History Alcohol intake: never Patient Tobacco Use Status: Former Tobacco user Quit Date: 2016 Years Smoked: 40 +/- Review of Systems Const Details: glasses Denies fatigue, Denies fever(s), Denies night sweats, Denies poor appetite and Denies weight loss Eyes Details: Glasses Reports requires corrective lenses ENT Reports Normal hearing present, Denies dental pain, Denies dysphagia, Denies hearing loss, Denies mouth pain, Denies odynophagia, Denies throat swelling, Denies tongue swelling and Reports other (Dentition adequate) Card Reports no additional complaints Resp Reports no additional complaints GI Details: Denies abdominal pain, Denies melena, Denies bloating, Denies hematochezia, Denies constipation, Denies GI cramping, Denies dysphagia, Denies excessive flatus, Reports early satiety, Reports heartburn, Denies diarrhea, Denies nausea, Denies odynophagia, Denies vomiting and Denies hematemesis Skin/Breast Denies pruritus, Denies lesions, Denies rash and Denies jaundice Neuro Reports Normal hearing present and Denies Abnormal speech present Endo Denies fatigue Aller/Immun Denies throat swelling and Denies tongue swelling Physical Exam Vital Signs: Last Vital Signs Pulse 70 01/14/24 13:12 BP 146/63 H 01/14/24 13:12 BMI result Body Mass Index 31.8 Const General: cooperative, no acute distress, well developed and well groomed Nutritional Appearance: well nourished and obese Orientation/consciousness: oriented to person, oriented to place and oriented to time Limitations: No language barrier and other limitations HEENT Head: Yes normocephalic and Yes atraumatic Eyes General: appearance normal, both eyes and all related structures Pupils: Equal, round and reactive pupils present Neck Neck: Yes normal visual inspection and Yes no lymphadenopathy Thyroid: Thyroid normal Resp Effort & Inspection: normal respiratory effort and able to speak in complete sentences Auscultation: clear to auscultation bilaterally Cardio Rate: regular rate Rhythm: regular rhythm Heart sounds: Normal, physiologic split S2 sound present Peripheral pulses: radial pulses present and posterior tibial pulses present GI Inspection: No distended, No Abdominal panniculus present and Yes obesity Palpation (GI): Soft to palpation, nontender, no guarding, not rigid and No hepatosplenomegaly present Percussion: Yes normal to percussion Auscultation: normal bowel sounds Rectal Exam - Female: deferred Skin General skin exam: no rashes or lesions noted, turgor normal, skin not dry, no jaundice, No spider nevi and no striae Rashes: no rashes Nails: normal Neuro General: oriented to person, oriented to place and oriented to time Cranial nerves: Yes Equal, round and reactive pupils present and Yes Normal hearing present Speech: No Abnormal speech present Extrem General: Yes normal to inspection, No clubbing, No cyanosis and No edema Psych Appearance: grossly normal and well kempt Mental Status: mental status grossly normal Speech and movement: Normal speech and movement present Affect: normal affect Attitude: cooperative Thought process: Normal thought process present and not confabulating Thought content: Normal thought content present Insight: Limited insight present (Psych) Judgement: Limited judgement present (Psych) Assessment & Plan Assessment & Plan (1) Delayed gastric emptying: Comment: Retained food in stomach on 2021 EGD Code(s): K30 - Functional dyspepsia Category: Medical (2) GERD (gastroesophageal reflux disease): Code(s): K21.9 - Gastro-esophageal reflux disease without esophagitis Category: Medical (3) Illiterate: Code(s): Z55.0 - Illiteracy and low-level literacy Category: Social Hx (4) Bowden's esophagus: Comment: Past history treated by Dr. Correia and no records available Code(s): K22.70 - Bowden's esophagus without dysplasia Category: Medical Plan She continues on Dexilant 60 mg once a day, famotidine 40 mg at twice a day, Reglan 10 mg twice a day. With this she feels that her GI symptoms are all well controlled and she is satisfied with her GI regimen. Return office visit in 6 months Medications: Refilled dexlansoprazole 60 mg PO DAILY 90 caps 1RF K21.9 - Gastro-esophageal reflux disease without esophagitis, K22.70 - Bowden's esophagus without dysplasia metoclopramide HCl (Reglan) 10 mg PO .bid qam and qacsuppe 180 tabs 1RF 90 days K30 - Functional dyspepsia famotidine 40 mg PO BID 180 tabs 1RF K21.9 - Gastro-esophageal reflux disease without esophagitis Coding Level of Care Code Est Pt Level 3 (83446) Diagnoses Delayed gastric emptying K30 GERD (gastroesophageal reflux disease) K21.9 Illiterate Z55.0 Bowden's esophagus K22.70
[2024-01-14 13:12] VITALS: BP 146/63; PULSE 70; BMI 31.8
== END 2024-01-14 13:33 | disposition home or self-care (01) ==
PROVIDERS: PCP Nurse Practitioner Adult Health; Visit Provider Nurse Practitioner
DX: K30 Functional dyspepsia (principal); K21.9 Gastro-esophageal reflux disease without esophagitis; Z55.0 Illiteracy and low-level literacy; K22.70 Barrett's esophagus without dysplasia
CPT/HCPCS: 99213

== ENCOUNTER → 2024-01-14 12:39 | Outpatient (BNVA) | payer MEDICARE, MEDICAID, SELFPAY | PROVIDERS: PCP Nurse Practitioner Adult Health; Visit Provider Nurse Practitioner | DX: K30 Functional dyspepsia (principal); K21.9 Gastro-esophageal reflux disease without esophagitis; K22.70 Barrett's esophagus without dysplasia; Z55.0 Illiteracy and low-level literacy | CPT/HCPCS: 99212 ==

== ENCOUNTER 2024-12-22 16:00 | Outpatient (AMB) | payer MEDICARE, MEDICAID, SELFPAY ==
--- NOTE | 2024-12-22 16:02 | A.OFFVIS_ITS ---
Vital Signs 12/22/24 16:05 Height 5 ft Weight 167 lb 8.821 oz BMI 32.7 BP 161/97 H Blood Pressure Location Rt brachial Position Sitting Pulse 74 Intake Visit Reasons: Follow up medication Allergies butorphanol [From Stadol] Allergy (Unknown, Verified 12/22/24 16:08) unknown oxycodone Allergy (Unknown, Verified 12/22/24 16:08) Unknown HPI HPI Follow up medication: Details: Assessment & Plan (1) Delayed gastric emptying: Comment: Retained food in stomach on 2021 EGD Code(s): K30 - Functional dyspepsia Category: Medical (2) GERD (gastroesophageal reflux disease): Code(s): K21.9 - Gastro-esophageal reflux disease without esophagitis Category: Medical (3) Illiterate: Code(s): Z55.0 - Illiteracy and low-level literacy Category: Social Hx (4) Bowden's esophagus: Comment: Past history treated by Dr. Correia and no records available Code(s): K22.70 - Bowden's esophagus without dysplasia Category: Medical Plan She continues on Dexilant 60 mg once a day, famotidine 40 mg at twice a day, Reglan 10 mg twice a day. With this she feels that her GI symptoms are all well controlled and she is satisfied with her GI regimen. Return office visit in 6 months Medications: Refilled dexlansoprazole 60 mg PO DAILY 90 caps 1RF K21.9 - Gastro-esophageal reflux disease without esophagitis, K22.70 - Bowden's esophagus without dysplasia metoclopramide HCl (Reglan) 10 mg PO .bid qam and qacsuppe 180 tabs 1RF 90 days K30 - Functional dyspepsia famotidine 40 mg PO BID 180 tabs 1RF K21.9 - Gastro-esophageal reflux disease without esophagitis TODAY'S VISIT She continues on Dexilant 60 mg once a day, famotidine 40 mg at twice a day, Reglan 10 mg twice a day. She is travelling now with her as she is retired, and she would like a 1 year follow up. ROV 1 year. [facility] Medical History GERD (gastroesophageal reflux disease) Illiterate Essential hypertension Carotid stenosis Nonrheumatic aortic valve regurgitation Atherosclerotic cardiovascular disease Coronary arteriosclerosis Surgical History Hx of cardiac catheterization History of coronary artery bypass graft (~12/2018) Family History Father Stroke Heart attack Mother Diabetes Social History Alcohol intake: never Patient Tobacco Use Status: Former Tobacco user Years Smoked: 40 +/- Review of Systems Const Denies fatigue, Denies fever(s), Denies night sweats, Denies poor appetite and Denies weight loss Eyes Details: glasses Reports requires corrective lenses ENT Reports Normal hearing present, Denies dental pain, Denies dysphagia, Denies hearing loss, Denies mouth pain, Denies odynophagia, Denies throat swelling, Denies tongue swelling and Reports other (Dentition adequate) Card Reports no additional complaints Resp Reports no additional complaints GI Details: Denies abdominal pain, Denies melena, Denies bloating, Denies hematochezia, Denies constipation, Denies GI cramping, Denies dysphagia, Denies excessive flatus, Denies early satiety, Reports heartburn, Denies diarrhea, Reports nausea, Denies odynophagia, Denies vomiting and Denies hematemesis Skin/Breast Denies pruritus, Denies lesions, Denies rash and Denies jaundice Neuro Reports Normal hearing present and Denies Abnormal speech present Endo Denies fatigue Aller/Immun Denies throat swelling and Denies tongue swelling Physical Exam Vital Signs: Last Vital Signs Pulse 74 12/22/24 16:05 BP 161/97 H 12/22/24 16:05 BMI result Body Mass Index 32.7 Const General: cooperative, no acute distress, well developed and well groomed Nutritional Appearance: well nourished and obese Orientation/consciousness: oriented to person, oriented to place and oriented to time Limitations: No language barrier and other limitations (Low literacy) HEENT Head: Yes normocephalic and Yes atraumatic Eyes General: appearance normal, both eyes and all related structures Pupils: Equal, round and reactive pupils present Neck Neck: Yes normal visual inspection and Yes no lymphadenopathy Thyroid: Thyroid normal Resp Effort & Inspection: normal respiratory effort and able to speak in complete sentences Auscultation: clear to auscultation bilaterally Cardio Rate: regular rate Rhythm: regular rhythm Heart sounds: Normal, physiologic split S2 sound present Peripheral pulses: radial pulses present and posterior tibial pulses present GI Inspection: No distended, No Abdominal panniculus present and Yes obesity Palpation (GI): Soft to palpation, nontender, no guarding, not rigid and No hepatosplenomegaly present Percussion: Yes normal to percussion Auscultation: normal bowel sounds Rectal Exam - Female: deferred Skin General skin exam: no rashes or lesions noted, turgor normal, skin not dry, no jaundice, No spider nevi and no striae Rashes: no rashes Nails: normal Neuro General: oriented to person, oriented to place and oriented to time Cranial nerves: Yes Equal, round and reactive pupils present and Yes Normal hearing present Speech: No Abnormal speech present Extrem General: Yes normal to inspection, No clubbing, No cyanosis and No edema Psych Appearance: grossly normal and well kempt Mental Status: mental status grossly normal Speech and movement: Normal speech and movement present Affect: normal affect Attitude: cooperative Thought process: not confabulating and Impoverished thought process present Thought content: Normal thought content present Insight: Limited insight present (Psych) Judgement: Limited judgement present (Psych) Assessment & Plan Assessment & Plan (1) Delayed gastric emptying: Comment: Retained food in stomach on 2021 EGD Code(s): K30 - Functional dyspepsia Category: Medical (2) GERD (gastroesophageal reflux disease): Code(s): K21.9 - Gastro-esophageal reflux disease without esophagitis Category: Medical (3) Illiterate: Code(s): Z55.0 - Illiteracy and low-level literacy Category: Social Hx (4) Bowden's esophagus: Comment: Past history treated by Dr. Correia and no records available Code(s): K22.70 - Bowden's esophagus without dysplasia Category: Medical (5) Diarrhea: Code(s): R19.7 - Diarrhea, unspecified Category: Medical Plan She continues on Dexilant 60 mg once a day, famotidine 40 mg at twice a day, Reglan 10 mg twice a day. She is travelling now with her as she is retired, and she would like a 1 year follow up. ROV 1 year. Medications: Changed From dexlansoprazole 60 mg PO DAILY 30 caps 5RF K21.9 - Gastro-esophageal reflux disease without esophagitis, K22.70 - Bowden's esophagus without dysplasia To dexlansoprazole 60 mg PO DAILY 90 caps 1RF 90 days K21.9 - Gastro-esophageal reflux disease without esophagitis, K22.70 - Bowden's esophagus without dysplasia From famotidine 40 mg PO BID 60 tabs 5RF K21.9 - Gastro-esophageal reflux disea se without esophagitis To famotidine 40 mg PO BID 180 tabs 1RF 90 days K21.9 - Gastro-esophageal reflux disease without esophagitis Refilled metoclopramide HCl (Reglan) 10 mg PO .bid qam and qacsuppe 180 tabs 1RF 90 days K30 - Functional dyspepsia Coding Level of Care Code Est Pt Level 3 (47413) Diagnoses Delayed gastric emptying K30 GERD (gastroesophageal reflux disease) K21.9 Illiterate Z55.0 Bowden's esophagus K22.70 Diarrhea R19.7
[2024-12-22 16:05] VITALS: BP 161/97; PULSE 74; BMI 32.7
--- NOTE | 2024-12-22 16:05 | A.OFFVIS_ITS ---
Vital Signs 12/22/24 16:05 Height 5 ft Weight 167 lb 8.821 oz BMI 32.7 BP 161/97 H Blood Pressure Location Rt brachial Position Sitting Pulse 74 Intake Visit Reasons: Follow up medication Intake Note: Patient in office today in follow up of GERD. CC: Patient reports a lot of GERD if she does not take her medication. Denies other GI symptoms today. Fulfillment Mail Clerk Required: No Accompanied by: Self / Same As Patient Allergies butorphanol [From Stadol] Allergy (Unknown, Verified 12/22/24 16:08) unknown oxycodone Allergy (Unknown, Verified 12/22/24 16:08) Unknown PFSH Medical History GERD (gastroesophageal reflux disease) Illiterate Essential hypertension Carotid stenosis Nonrheumatic aortic valve regurgitation Atherosclerotic cardiovascular disease Coronary arteriosclerosis Surgical History Hx of cardiac catheterization History of coronary artery bypass graft (~12/2018) Family History Father Stroke Heart attack Mother Diabetes Social History Alcohol intake: never Patient Tobacco Use Status: Former Tobacco user Years Smoked: 40 +/- Assessment & Plan Assessment & Plan (1) Delayed gastric emptying: Comment: Retained food in stomach on 2021 EGD Code(s): K30 - Functional dyspepsia Category: Medical (2) GERD (gastroesophageal reflux disease): Code(s): K21.9 - Gastro-esophageal reflux disease without esophagitis Category: Medical (3) Illiterate: Code(s): Z55.0 - Illiteracy and low-level literacy Category: Social Hx (4) Bowden's esophagus: Comment: Past history treated by Dr. Correia and no records available Code(s): K22.70 - Bowden's esophagus without dysplasia Category: Medical (5) Diarrhea: Code(s): R19.7 - Diarrhea, unspecified Category: Medical Coding Diagnoses Delayed gastric emptying K30 GERD (gastroesophageal reflux disease) K21.9 Illiterate Z55.0 Bowden's esophagus K22.70 Diarrhea R19.7
--- OUTSIDE RECORDS SUMMARY | 2024-12-22 17:58 | XMS_ITS | Continuity of Care Document ---
Author Organization [facility] Address [address] [place] [address]- Care Team Providers Care Computer Methods Analyst Name Role Phone Mehdi POWELL, Afshan Lazar Primary Care Physician [place] [facility] [place]): [place] 12[place]/24 [facility] [address] [place] [id number] Encounter Diagnosis Hyperglycemia(Discharge Diagnosis) - 06/05/24 Hypothyroid(Discharge Diagnosis) - 06/05/24 Attending Physician: Vlad Gasca Admitting Physician: AdmtrVlad Referring Physician: Admtr, Ar8 Encounter Type: Triage Allergies, Adverse Reactions, Alerts Substance Criticality Severity Reaction Reaction Severity Status Stadol Active OxyCONTIN Unable to assess criticality Persistent Severe Active oxyCODONE 1 Active 1angioedema Immunizations Given and Recorded Vaccine Date Status Refusal Reason influenza virus vaccine, inactivated 1 08/16/19 Gi nik influenza virus vaccine, inactivated 2 10/01/18 Gi nik influenza virus vaccine, inactivated 07/29/16 Give n pneumococcal 23-valent vaccine 12/15/18 Given tetanus/diphtheria/pertussis, acel(Tdap) 01/14/17 Given 1Result Comment: [place]; [id number] 2Result Comment: [10/01/2018] [facility]: [id number] Medications acetaminophen-hydrocodone 325 mg-10 mg oral tablet 1 tablet, By Mouth, Every 6 hours, PRN for pain, [employer] TECHNICIAN checked. fill on 09/16/24, # 112 tablet, 0 Refills, Maintenance, 09/15/24 12:47:00 PM EST, Tablet, [facility] - [place], [place] - [id number], Partial fill upon patient request, 1 tablet By Mouth Every 6 hours,x28 days,PRN:for pain,Instr:FISH ROE TECHNICIAN checked. fill on 09/16/24, 155, cm, 05/29/24 16:13:00 EDT, Height Start Date: 09/15/24 Stop Date: 10/13/24 Status: Ordered Quantity: 112.0 Unit: tablet Repeat number: 1 Indication: Spondylosis without myelopathy or radiculopathy, lumbar region Aspirin Enteric Coated 81 mg oral delayed release tablet See Instructions, # 30 tablet, Refills 5 Tot. Refills 5, TAKE ONE TABLET BY MOUTH DAILY, [place], [place] - Start Date: 04/19/19 Status: Ordered Quantity: 30.0 Unit: tablet Repeat number: 6 atorvastatin 80 mg oral tablet 1 tablet, By Mouth, Daily, # 100 tablet, 3 Refills, Maintenance, 01/06/23 9:15:00 AM EDT, [facility] [phone], 155, cm, 10/30/22 12:53:00 EST, Height Start Date: 01/06/23 Stop Date: 02/10/24 Status: Ordered Quantity: 100.0 Unit: tablet Repeat number: 4 buPROPion 150 mg/12 hours (SR) oral tablet, extended release See Instructions, # 60 tablet, Refills 5 Tot. Refills 5, TAKE ONE TABLET BY MOUTH 2 (two) times a day, [place], [place] - Start Date: 04/19/19 Status: Ordered Quantity: 60.0 Unit: tablet Repeat number: 6 Cane with three prongs Cane with three prongs, See Instructions, # 1 each, Refills 0, Tot. Refills 0, Maintenance, Weight:70.3 kg Height: 155 cm Dx: Gait instability R26.81 brocken cane, 01/14/24 2:05:00 PM EDT, Supply Start Date: 01/14/24 Status: Ordered Quantity: 1.0 Unit: each Repeat number: 1 Indication: Unsteadiness on feet clopidogrel 75 mg oral tablet 1, tablet, By Mouth, Daily, # 30 tablet, Refills 5, Maintenance, 09/19/24 2:15:00 PM EST, Route to Pharmacy Electronically, [facility], 155, cm, 05/29/24 16:13:00 EDT, Height Start Date: 09/19/24 Status: Ordered Quantity: 30.0 Unit: tablet Repeat number: 1 clopidogrel 75 mg oral tablet See Instructions, TAKE 1 TABLET BY MOUTH ONCE DAILY, # 30 tablet, Refills 5, Maintenance, 10/09/24 2:08:00 PM EST, Instructions Replace Required Details, Route to Pharmacy Electronically, [facility], 155, cm, 05/29/24 16:13:00 EDT, Height Start Date: 10/09/24 Status: Ordered Quantity: 30.0 Unit: tablet Repeat number: 1 dexlansoprazole 60 mg oral delayed release capsule 1 capsule = 60 mg, By Mouth, Daily, # 30 capsule, 0 Refills, Maintenance, 07/28/22 2:21:00 PM EST, EC Capsule, Partial fill upon patient request if the prescription is for a schedule II opioid drug. Start Date: 07/28/22 Status: Ordered Quantity: 30.0 Unit: capsule Repeat number: 1 FeroSul 325 mg oral tablet 1 tablet, By Mouth, 2 times a day with meals, # 60 tablet, 5 Refills, Maintenance, 12/12/24 11:25:00AM EDT, [facility], 155, cm, 05/29/24 16:13:00 EDT, Height Start Date: 12/12/24 Status: Ordered Quantity: 60.0 Unit: tablet Repeat number: 1 furosemide 40 mg oral tablet 1, tablet, By Mouth, 2 times a day, # 60 tablet, Refills 5, Maintenance, 12/12/24 11:47:00 AM EDT, Route to Pharmacy Electronically, [facility], 155, cm, 05/29/24 16:13:00 EDT, Height Start Date: 12/12/24 Status: Ordered Quantity: 60.0 Unit: tablet Repeat number: 1 gabapentin 300 mg oral capsule 1, capsule, By Mouth, 3 times a day, # 90 capsule, Refills 5, Maintenance, 03/28/24 9:19:00 AM EDT, Route to Pharmacy Electronically, [facility], 155, cm, 11/20/23 13:28:00 EST, Height Start Date: 03/28/24 Status: Ordered Quantity: 90.0 Unit: capsule Repeat number: 1 gabapentin 300 mg oral capsule See Instructions, TAKE 1 CAPSULE BY MOUTH 3 (THREE) TIMES A DAY, # 90 capsule, Refills 5, Maintenance, 10/09/24 2:08:00 PM EST, Instructions Replace Required Details, Route to Pharmacy Electronically,[facility], Renetta cm, 05/29/24 16:13:00 EDT, Height Start Date: 10/09/24 Status: Ordered Quantity: 90.0 Unit: capsule Repeat number: 1 ketoconazole 2% topical shampoo See Instructions, APPLY TO THE AFFECTED AREA TOPICALLY ONCE, # 120 mL, 5 Refills, Maintenance, 01/09/23 10:58:00 AM EDT, [facility], 30, APPLY TO THE AFFECTED AREA TOPICALLY ONCE, 155, cm, 10/30/22 12:53:00 EST, Height Start Date: 01/09/23 Status: Ordered Quantity: 120.0 Unit: mL Repeat number: 1 ketoconazole 2% topical shampoo See Instructions, APPLY TO THE AFFECTED AREA TOPICALLY ONCE, # 120 mL, 5 Refills, Maintenance, 06/13/22 9:42:00 AM EDT, [facility], 30, APPLY TO THE AFFECTED AREA TOPICALLY ONCE, 155, cm, 01/23/22 14:13:00 EDT, Height Start Date: 06/13/22 Status: Ordered Quantity: 120.0 Unit: mL Repeat number: 1 lamotrigine 25 mg oral tablet 1, tablet, By Mouth, 2 times a day, # 60 tablet, Refills 5, Maintenance, 07/14/22 12:44:00 PM EDT, Route to Pharmacy Electronically, [facility], 155, cm, 01/23/22 14:13:00 EDT, Height Start Date: 07/14/22 Status: Ordered Quantity: 60.0 Unit: tablet Repeat number: 1 metoprolol 50 mg oral tablet, extended release 50 mg, 1, tablet, By Mouth, Daily, STOP METOPROLOL TARTRATE, # 30 tablet, Refills 2, Tot. Refills 2, Maintenance, 01/05/19 9:51:41 AM EDT, Route to Pharmacy Electronically, [facility] - [place], [place] - Start Date: 01/05/19 Status: Ordered Quantity: 30.0 Unit: tablet Repeat number: 3 montelukast 10 mg oral tablet 1, tablet, By Mouth, Daily in PM, # 30 tablet, Refills 5, Maintenance, 12/12/24 11:26:00 AM EDT, Route to Pharmacy Electronically, [facility], 155, cm, 05/29/24 16:13:00 EDT, Height Start Date: 12/12/24 Status: Ordered Quantity: 30.0 Unit: tablet Repeat number: 1 potassium chloride 20 mEq oral tablet, extended release 1 tablet = 20 mEq, By Mouth, 2 times a day, # 60 tablet, 5 Refills, Maintenance, 03/11/19 1:56:33 PMEDT, ER Tablet, [facility] - [place], [place] - Start Date: 03/11/19 Stop Date: 09/07/19 Status: Ordered Quantity: 60.0 Unit: tablet Repeat number: 6 ProAir HFA 2 puffs, Inhalation, 4 times a day, PRN Cough and Congestion, 0 Refills, Maintenance, 01/03/15 7:25:57 AM EDT Start Date: 01/03/15 Status: Ordered Repeat number: 1 solifenacin 10 mg oral tablet 1 tablet, By Mouth, Daily, # 30 tablet, 11 Refills, Maintenance, 11/08/24 1:13:00 PM EST, [facility], 155, cm, 05/29/24 16:13:00 EDT, Height Start Date: 11/08/24 Status: Ordered Quantity: 30.0 Unit: tablet Repeat number: 1 Vitamin D3 50,000 intl units oral capsule 1 capsule, By Mouth, Every week, # 4 capsule, 11 Refills, Maintenance, 11/08/24 1:12:00 PM EST, [facility], 155, cm, 05/29/24 16:13:00 EDT, Height Start Date: 11/08/24 Status: Ordered Quantity: 4.0 Unit: capsule Repeat number: 1 Walker with seat Walker with seat, See Instructions, # 1 each, Refills 0, Tot. 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 Active Obese class I Confirmed Active Major depression, recurrent, chronic Confirmed Active Diagnosis Diagnosis Type Effective Dates Health Status Cl inical Service Informant Hyperglycemia Discharge Diagnosis 06/05/24 Hypothyroid Discharge Diagnosis 06/05/24 Social History Social History Type Response Smoking Status Former smoker, quit more than 30 days ago; Other: quit december 2018; entered on: 04/13/19 Sex Sex Representation Female (finding) Laboratory * Event Display: Non BH Lab Results Authored Date: * Event Display: Laboratory Result Scanned Authored Date: Cardiology * Event Display: Cardiology Office Note, Non-BH Authored Date: * Event Display: Cardiology Office Note, Non-BH Authored Date: * Event Display: Cardiology Office Note, Non-BH Authored Date: Radiology * Event Display: [place] Nuclear Medicine, Non-BH Authored Date: * Event Display: [facility] Nuclear Medicine Authored Date: Patient Care team information Care Team Personnel Name: Prateek Schwarz RN Position: S RN Member Role: Primary Care Nurse Name: Mac [INSTR]Amber Position: S RN Member Role: Primary Care Nurse Name: Afshan Harding NP Position: [facility] PCO Associate Professional Member Role: PCP Address: [address] [place] [address] Telecom: Name: Ivanna Yung RN Position: [facility] RN Supv Member Role: Primary Care Nurse Name: Renato Drake RN Position: S RN Member Role: Primary Care Nurse Name: Afshan Mack RN Position: S RN Member Role: Primary Care Nurse Name: Ansley Beyer RN Position: S RN Member Role: Primary Care Nurse Care Team Related Persons Name: SHERRI ANNE Insurance Providers Guarantor name: MICHELA ANNE Health Plan Information #: 1 Payer: [employer] Member Number: NA Policy Number: NA Group Number: NA Health Plan Information #: 2 Payer: [place] Member Number: NA Policy Number: NA Group Number: NA
--- OUTSIDE RECORDS SUMMARY | 2024-12-22 17:58 | XMS_ITS | Clinical Summary ---
Author Organization [facility] it Address [address] [place] [address] Care Team Providers Care Chef Broiler Or Fry Name Role Phone Nicole Sage MARC Primary Care Provider [phone] Surgical History Surgery Date Site/Laterality Comments OTHER SURGICAL HISTORY 2009 PROCEDURE: ---- OTHER ----; COMMENT: bladder sling for incontinence TONSILLECTOMY PROCEDURE: HISTORICAL TONSILLECTOMY CHOLECYSTECTOMY PROCEDURE: HISTORICAL CHOLECYSTECTOMY Family History Medical History Relation Name Comments Breast cancer Neg Hx Colon cancer Neg Hx Ovarian cancer Neg Hx Social History Tobacco Use Types Packs/Day Years Used Date Smoking Tobacco: Every Day Smokeless Tobacco: Never Alcohol Use Standard Drinks/Week Comments No 0 (1 standard drink = 0.6 oz pur e alcohol) Comments Unknown Sex and Gender Information Value Date Recorded Sex Assigned at Not on file Legal Sex Female 10:15 PM EST Gender Identity Not on file Sexual Orientation Not on file Obstetrics History Plan of Treatment Health Maintenance Due Date Last Done Comments Breast Cancer Screening 1962 DTaP,Tdap,and Td Vaccines (1 - Tdap) 1981 Pneumococcal Vaccine: 50+ Ye ars (1 of 2 - PCV) 1981 Pneumococcal Vaccine: Pediat rics (0 to 5 Years) and At-Risk Patients (6 to 64 Years) (1 of 2 - PCV) 1981 Cervical Cancer Screening: P ap Smear 1983 Zoster Vaccines (1 of 2) 02/03/2012 Cholesterol Screening (Lipid Panel) 10/13/2023 Colorectal Cancer Screening: Colonoscopy 10/13/2023 Depression Screening 10/13/2023 HIV Screening 10/13/2023 Hepatitis C Screening 10/13/2023 Hypertension/CHF/CAD Annual BMP Blood Test 10/13/2023 Social Influencers of Health Screening 10/13/2023 COVID-19 Vaccine ( - 2023-2 5 season) 2024 Influenza Vaccine (Season Ended) 2025 RSV Immunization Adult Patie nts (1 - 1-dose 75+ series) 2037 HIB Vaccines Aged Out No longer eligi ble based on patient's age to complete this topic HPV Vaccines Aged Out No longer eligi ble based on patient's age to complete this topic Hepatitis A Vaccines Aged Out No long er eligible based on patient's age to complete this topic Hepatitis B Vaccines Aged Out No long er eligible based on patient's age to complete this topic IPV Vaccines Aged Out No longer eligi ble based on patient's age to complete this topic MMR Vaccines Aged Out No longer eligi ble based on patient's age to complete this topic Meningococcal ACWY Vaccine Aged Out N o longer eligible based on patient's age to complete this topic Meningococcal B Vaccine Aged Out No l onger eligible based on patient's age to complete this topic RSV Immunization Patients Un barry 20 months Aged Out No longer eligible b ased on patient's age to complete this topic Varicella Vaccines Aged Out No longer eligible based on patient's age to complete this topic Care Teams Chef Broiler Or Fry Relationship Specialty Start Date End Date Nicole Sage FNP PCP - General Nephrology 09/13/14
== END 2024-12-22 16:35 | disposition home or self-care (01) ==
LOC: HO.HGI 16:00
PROVIDERS: PCP Nurse Practitioner Adult Health; Visit Provider Nurse Practitioner
DX: K30 Functional dyspepsia (principal); K21.9 Gastro-esophageal reflux disease without esophagitis; Z55.0 Illiteracy and low-level literacy; K22.70 Barrett's esophagus without dysplasia; R19.7 Diarrhea, unspecified
CPT/HCPCS: 99213

== ENCOUNTER → 2024-12-22 16:00 | Outpatient (BNVA) | payer MEDICARE, MEDICAID, SELFPAY | PROVIDERS: PCP Nurse Practitioner Adult Health; Visit Provider Nurse Practitioner | DX: K30 Functional dyspepsia (principal); K21.9 Gastro-esophageal reflux disease without esophagitis; K22.70 Barrett's esophagus without dysplasia; R19.7 Diarrhea, unspecified; Z55.0 Illiteracy and low-level literacy; Z79.899 Other long term (current) drug therapy | CPT/HCPCS: 99212 ==